=== PATIENT | female | born 2000 | race Two or more races ===

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

== ENCOUNTER 2019-02-12 21:11 | Emergency (ER) | payer SELFPAY ==
[~2019-02-12] VITALS: Ht 154.9 cm; Wt 68.0 kg
[~2019-02-12 21:11] MED LIST changes: -Dicyclomine HCl 10mg/5ml oral soln ORAL ONE; -Lidocaine 2% Visc 15ml soln ORAL ONE; -Mylanta II UD 30ml ORAL ONE
[2019-02-12 21:34] VITALS: BP 136/87
[2019-02-12] MEDS ORDERED: TYLENOL EXTRA500 MG ORAL (21:51)
[2019-02-12 21:55] VITALS: BP 136/87
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
== END 2019-02-12 21:55 | disposition home or self-care (01) ==
LOC: EMR 21:50
DX: S00.83XA Contusion of other part of head, initial encounter (principal); Y04.2XXA Assault by strike against or bumped into by another person, initial encounter; Y92.9 Unspecified place or not applicable
CPT/HCPCS: 99282